=== PATIENT | female | born 1955 | race Native Hawaiian/Other Pacific Islander ===

== ENCOUNTER 2019-11-10 00:17 | Inpatient (IN) | payer MEDICAID ==
[~2019-11-10] VITALS: Ht 162.6 cm; Wt 89.0 kg
[~2019-11-10 00:17] MED LIST: CEL20 PO; TRAZODONE50 MG PO
[2019-11-10 00:22] VITALS: Ht 162.6 cm; Wt 89.0 kg
[2019-11-10 00:48] LABS: BASOPHIL % 0.7 % (0-2); PLATELET COUNT 181 x10^3mcL (130-400); RED CELL DISTRIBUTION WIDTH 16.2 % (11.5-14.5)
[2019-11-10 00:59] LABS: CALCIUM 8.8 mg/dL (8.5-10.1); CARBON DIOXIDE 27.8 mmol/L (21-32); CHLORIDE SERUM 100 mmol/L (98-107); GFR1 59 mL/min; GLUCOSE SERUM 153 mg/dL (74-106); POTASSIUM SERUM 3.6 mmol/L (3.5-5.1); SODIUM SERUM 138 mmol/L (136-145)
[2019-11-10 01:05] LABS: ALBUMIN 3.8 g/dL (3.4-5.0); ALKALINE PHOSPHATASE 51 U/L (46-116); ALT/SGPT 52 U/L (14-59); AST/SGOT 61 U/L (15-37); BILIRUBIN TOTAL 0.5 mg/dL (0.20-1.00); TOTAL PROTEIN, SERUM 7.8 g/dL (6.4-8.2)
[2019-11-10 02:20] LABS: UA SPECIFIC GRAVITY 1.015 (1.005-1.035); microscopic required? YES; urine erythrocyte NEGATIVE (NEGATIVE)
[2019-11-10 05:01] LABS: T3 TOTAL 0.71 ng/mL
[2019-11-10 05:36] LABS: FREE T4 0.62 ng/dL (0.76-1.46)
[2019-11-10 05:37] LABS: CHOLESTEROL/HDL RATIO 2.7
[2019-11-10 06:07] VITALS: BP 158/88
[2019-11-10 06:21] LABS: BASOPHIL % 1.7 % (0-2); PLATELET COUNT 200 x10^3mcL (130-400)
[2019-11-10 06:23] LABS: CALCIUM 8.6 mg/dL (8.5-10.1); CARBON DIOXIDE 30.4 mmol/L (21-32); POTASSIUM SERUM 3.6 mmol/L (3.5-5.1)
[2019-11-10 06:24] LABS: RED CELL DISTRIBUTION WIDTH 16.3 % (11.5-14.5)
[2019-11-10 08:25] VITALS: BP 161/80
[2019-11-10 09:48] VITALS: BP 157/84
[2019-11-10 19:26] LABS: AMPHETAMINE QUAL UR NONE DETECTED (See below)
== END 2019-11-10 14:55 | disposition left against medical advice (07) | DRG 420 ==
LOC: ED 00:17 → DU 02:12
PROVIDERS: Emergency Medicine; ADMIT Family Medicine; ATTEND Family Medicine
DX: E11.649 Type 2 diabetes mellitus with hypoglycemia without coma (principal); F41.9 Anxiety disorder, unspecified; N39.0 Urinary tract infection, site not specified; Z53.29 Procedure and treatment not carried out because of patient's decision for other reasons; Z79.84 Long term (current) use of oral hypoglycemic drugs; Z79.899 Other long term (current) drug therapy
CPT/HCPCS: 82947; 82962; 83880; 84439; G0378; G0480; J0696; J3490; J7060; J7070; Q0092

== ENCOUNTER 2020-05-02 11:19 | Emergency (ER) | payer SELFPAY ==
[~2020-05-02] VITALS: Ht 162.6 cm; Wt 68.0 kg
[2020-05-02 11:37] VITALS: Ht 162.6 cm; Wt 68.0 kg
[2020-05-02 12:00] LABS: BASOPHIL % 0.9 % (0-2); PLATELET COUNT 146 x10^3mcL (130-400)
[2020-05-02 12:24] LABS: T3 TOTAL 1.26 ng/mL
[2020-05-02 12:26] LABS: CALCIUM 8.5 mg/dL (8.5-10.1); CARBON DIOXIDE 26.2 mmol/L (21-32); CREATININE SERUM 1.3 mg/dL (0.6-1.0); POTASSIUM SERUM 3.8 mmol/L (3.5-5.1)
[2020-05-02 12:30] LABS: BILIRUBIN TOTAL 0.97 mg/dL (0.20-1.00); TOTAL PROTEIN, SERUM 8.3 g/dL (6.4-8.2)
[2020-05-02 12:42] LABS: FREE T4 0.71 ng/dL (0.76-1.46)
[2020-05-02 12:44] LABS: FREE THYROXINE INDEX 1.4 ug/dL (1.4-4.5); T4(THYROXINE) 4.5 ug/dL (4.7-13.3)
[2020-05-02 14:19] VITALS: BP 159/88
== END 2020-05-02 14:19 | disposition home or self-care (01) ==
LOC: ED 11:19
PROVIDERS: Specialist
DX: F41.9 Anxiety disorder, unspecified (principal); I10 Essential (primary) hypertension; E11.9 Type 2 diabetes mellitus without complications; Z13.9 Encounter for screening, unspecified
CPT/HCPCS: 82962; 84439

== ENCOUNTER 2020-05-11 08:26 | Emergency (ER) | payer OTHER ==
[~2020-05-11] VITALS: Ht 162.6 cm; Wt 90.7 kg
[2020-05-11 09:05] VITALS: Ht 162.6 cm; Wt 90.7 kg
[2020-05-11 10:14] LABS: BASOPHIL % 0.7 % (0-2); PLATELET COUNT 163 x10^3mcL (130-400)
[2020-05-11 10:20] LABS: PHOSPHOROUS 2.9 mg/dL (2.5-4.9)
[2020-05-11 10:32] LABS: MAGNESIUM 1.1 mg/dL (1.8-2.4)
[2020-05-11 10:33] VITALS: BP 170/99
[2020-05-11 10:58] LABS: CALCIUM 8.3 mg/dL (8.5-10.1); CARBON DIOXIDE 26.4 mmol/L (21-32); CREATININE SERUM 1.1 mg/dL (0.6-1.0); POTASSIUM SERUM 3.9 mmol/L (3.5-5.1)
[2020-05-11 11:15] LABS: ALBUMIN 3.9 g/dL (3.4-5.0); BILIRUBIN TOTAL 0.51 mg/dL (0.20-1.00); TOTAL PROTEIN, SERUM 7.7 g/dL (6.4-8.2)
== END 2020-05-11 10:33 | disposition left against medical advice (07) ==
LOC: ED 08:26
PROVIDERS: Student in an Organized Health Care Education/Training Program
DX: E11.65 Type 2 diabetes mellitus with hyperglycemia (principal); R53.1 Weakness; R25.1 Tremor, unspecified; E11.9 Type 2 diabetes mellitus without complications
CPT/HCPCS: 82962

== ENCOUNTER 2020-05-19 12:37 | Emergency (ER) | payer SELFPAY ==
[~2020-05-19] VITALS: Ht 165.1 cm; Wt 69.9 kg
[2020-05-19 12:59] VITALS: BP 137/84; Ht 165.1 cm; Wt 69.9 kg
== END 2020-05-19 13:57 | disposition left against medical advice (07) ==
LOC: ED 12:37
DX: Z53.21 Procedure and treatment not carried out due to patient leaving prior to being seen by health care provider (principal)